=== PATIENT | male | born 1960 | race Caucasian/White ===

== ENCOUNTER 2018-02-04 17:33 | Emergency (ER) | payer OTHER ==
[~2018-02-04] VITALS: Ht 177.8 cm; Wt 97.5 kg
[~2018-02-04 17:33] MED LIST: AUGMENTIN 875 M1 TAB PO; FLEXERIL10 MG PO; MEDROL DOSEPAK1 PAC PO; OXY IR5 MG PO; PERCOCET 325 MG1 TA2 PO
[2018-02-04 17:39] VITALS: BP 151/100
--- NOTE | 2018-02-04 18:25 | RADIOLOGY REPORT ---
EXAMINATION: XR FINGER, RIGHT CLINICAL INFORMATION: Right thumb laceration on log splitter. COMPARISON: None TECHNIQUE: 3 views of the right thumb. FINDINGS: The thumb is covered by a bandage. No radiopaque foreign bodies are seen. Soft tissues are suboptimally evaluated due to the bandage. There is soft tissue irregularity/laceration predominantly at the anterior aspect of the distal thumb. A 0.3 cm avulsion fracture fragment from the dorsal base of the distal phalanx of the thumb is displaced proximally by 0.2 cm. The thumb interphalangeal joint mildly distracted. Mild dorsal subluxation of the distal phalanx. Small, displaced avulsion fracture fragment projects volar to the injured interphalangeal joint. 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 Osteoarthritis also observed at multiple IP joints of the 2nd - 5th digits. IMPRESSION: Small avulsion fractures at the anterior and posterior aspect of the thumb interphalangeal joint. The interphalangeal joint is mildly distracted and the distal phalanx exhibits mild dorsal subluxation. Soft tissues are suboptimally evaluated due to the overlying bandage. No radiopaque foreign bodies.
--- NOTE | 2018-02-04 18:30 | ED HAND/WRIST INJURY COMPLAINT ---
History of Present Illness General Chief Complaint: Laceration Procedure Stated Complaint: LAC TO RT THUMB Source: patient Exam Limitations: no limitations Vital Signs & Intake/Output Vital Signs & Intake/Output Vital Signs Date Time Temp Pulse Resp B/P B/P Pulse O2 O2 Flow FiO2 Mean Ox Delivery Rate 02/04 1739 98.7 101 18 151/100 98 Room Air Allergies Coded Allergies: NO KNOWN ALLERGIES (04/22/12) Reconcile Medications AMOXICILLIN/POTASSIUM CLAV (Augmentin 875-125 Tablet) 875 MG/125 MG TAB 1 TAB PO BID OPEN FX Cephalexin (Keflex) 500 MG CAPSULE 1 CAP PO TID CELLULITIS Oxycodone HCl/Acetaminophen (Percocet 5-325 MG Tablet) 5 MG-325 MG TABLET 1 TAB PO 4 TIMES/DAY PRN PAIN OXYCODONE HCL/ACETAMINOPHEN (Percocet 5-325 MG Tablet) 325 MG/5 MG TAB 1-2 TAB PO Q4-6 PRN PRN PAIN Triage Note: 57 YO MALE 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 TETNUS UTD. FINGER WRAPPED IN WAITING ROOM. NO ACTIVE BLEEDING AT THIS TIME. PT TO XRAY AND THEN TO ROOM Triage Nurses Notes Reviewed? yes Occurred: just prior to arrival Duration: hour(s): (1), constant, continues in ED Timing: single episode today Injury Environment: work Severity: mild, moderate Severity Numbers: 8 Pain/Injury Location: Right: 1st finger. Context: laceration Method of Injury: laceration No Modifying Factors: none HPI: 57-year-old male with no past medical history of present evaluation of a laceration to his right thumb. Patient was at work cutting logs using a wood splitter. He states that his thumb got caught the sharp edge of the wood splitter causing a laceration. Patient denies any other injuries up-to-date on tetanus. He reports a laceration located on the middle of the thumb mostly on the palmar aspect. He is able to move the thumb but it is painful. He denies any numbness or tingling no other injuries. Past History Travel History Traveled to [place] past 21 day No Medical History Any Pertinent Medical History? see below for history Neurological: NONE EENT: NONE Cardiovascular: NONE Respiratory: NONE Gastrointestinal: NONE Hepatic: NONE Renal: NONE Musculoskeletal: NONE Psychiatric: NONE Endocrine: NONE Blood Disorders: NONE Cancer(s): NONE PLANT OPERATIONS WORKER/Reproductive: NONE Tetanus Vaccine: 09/26/15 Surgical History Surgical History: non-contributory Psychosocial History What is your primary language Ghanaian Tobacco Use: Never used Family History Hx Contributory? No Review of Systems Review of Systems Constitutional: Reports: no symptoms. EENTM: Reports: no symptoms. Respiratory: Reports: no symptoms. Cardiovascular: Reports: no symptoms. GI: Reports: no symptoms. Genitourinary: Reports: no symptoms. Musculoskeletal: Reports: no symptoms. Skin: Reports: see HPI (laceration). Neurological/Psychological: Reports: no symptoms. Hematologic/Endocrine: Reports: no symptoms. Immunologic/Allergic: Reports: no symptoms. All Other Systems: Reviewed and Negative Physical Exam Physical Exam General Appearance: well developed/nourished, no apparent distress, alert, awake Head: atraumatic, normal appearance Eyes: Bilateral: normal appearance, EOMI. Ears, Nose, Throat: hearing grossly normal Neck: normal inspection, supple, full range of motion Cardiovascular/Respiratory: no respiratory distress Back: normal inspection, normal range of motion Elbow Left: normal range of motion, normal inspection Elbow Right: normal range of motion, normal inspection Forearm Left: normal range of motion, normal inspection Forearm Right: normal range of motion, normal inspection Wrist Left: normal range of motion, normal inspection Wrist Right: normal range of motion, normal inspection Hand Left: normal inspection, normal range of motion Hand Right: lacerations, evidence of injury, tender, 1st finger, there is a 1 evening that 2.5 cm horizontal linear laceration extending from the palmar aspect of the thumb to the lateral aspect of the thumb. Active bleeding is present. Subcutaneous tissue is visible. No obvious foreign body. Range of motion of the thumb is reduced due to pain but tendon function appears intact. There is soft tissue swelling. No evidence of nail damage. Cap refill less than 2 seconds sensory supply intact. Neurologic/Tendon: normal sensation, normal motor functions, normal tendon functions, responds to pain, no evidence tendon injury, no pulse deficit Skin: intact, normal color, warm/dry Progress Differential Diagnosis: laceration, tendon injury, fracture, sprain, dislocation Plan of Care: Current Medications Sig/Rolando Start time Last Medication Dose Stop Time Status Admin Lidocaine 20 ML ONCE ONE 02/04 1830 UNVr (Lidocaine 1%) 02/04 1831 Patient seen and evaluated. He is here with a thumb laceration. He is up-to- date on tetanus. On exam he has a large laceration located on the thumb. He does appear to have tendon function and neurovascular function intact. X-rays do show several avulsion fractures. The laceration was cleaned with copious amounts of sterile water. He denied applied. 1% lidocaine was used to apply a digital block. 11 4-0 nylon simple interrupted sutures were used to approximate the wound. Patient tolerated well. A splint and sterile dressing were applied. Discussed wound care procedures in detail. Patient will be covered with cephalexin for wound prophylaxis and treatment of possible open fracture. He'll be referred to hand surgery. Discussed with patient about the importance of good follow-up and wound care. Advised him if he cannot get in with the plastic surgeon on Wednesday to come into the ER for a recheck. Discussed return precautions in detail patient agrees the plan Diagnostic Imaging: Viewed by Me: Radiology Read. Discussed w/RAD: Radiology Read. Radiology Impression: PATIENT: NABIL SINGH PRESENT AGE: 57 PATIENT ACCOUNT NO: [id number] : 61 LOCATION: [facility] ORDERING PHYSICIAN: Arnie GAMBOA SERVICE DATE: 02/04/18 EXAM TYPE : RAD - XRY-FINGERS, RIGHT EXAMINATION: XR FINGER, RIGHT CLINICAL INFORMATION: Right thumb laceration on log splitter. COMPARISON: None TECHNIQUE: 3 views of the right thumb. FINDINGS: The thumb is covered by a bandage. No radiopaque foreign bodies are seen. Soft tissues are suboptimally evaluated due to the bandage. There is soft tissue irregularity/laceration predominantly at the anterior aspect of the distal thumb. A 0.3 cm avulsion fracture fragment from the dorsal base of the distal phalanx of the thumb is displaced proximally by 0.2 cm. The thumb interphalangeal joint mildly distracted. Mild dorsal subluxation of the distal phalanx. Small, displaced avulsion fracture fragment projects volar to the injured interphalangeal joint. 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 Osteoarthritis also observed at multiple IP joints of the 2nd - 5th digits. IMPRESSION: Small avulsion fractures at the anterior and posterior aspect of the thumb interphalangeal joint. The interphalangeal joint is mildly distracted and the distal phalanx exhibits mild dorsal subluxation. Soft tissues are suboptimally evaluated due to the overlying bandage. No radiopaque foreign bodies. DICTATED BY: Juan Keenan MD DATE/TIME DICTATED:02/04/181816 [employer] OPERATOR HELPER: JOSE L DATE/TIME TRANSCRIBED:02/04/181816 CONFIDENTIAL, DO NOT COPY WITHOUT APPROPRIATE AUTHORIZATION. <Electronically signed in Other Vendor System> Departure Departure Disposition: HOME OR SELF CARE Condition: Stable Clinical Impression Primary Impression: Thumb laceration Qualifiers: Encounter type: initial encounter Damage to nail status: without damage Foreign body presence: without foreign body Laterality: right Qualified Code: S61.011A - Laceration without foreign body of right thumb without damage to nail, initial encounter Referrals: Patient Has No Primary Care Dr (PCP/Family) Ramírez HALL,Hitesh Snow Additional Instructions: Keep the area clean and dry. Change dressing every 1-2 days. Wear splint at all times. Take antibiotics as directed for the full course. Use Tylenol and ibuprofen for pain Percocet for severe pain only. You need to have a wound check in 2 or 3 days. Make a follow-up with the plastic surgeon Dr. De La Paz for Wednesday or Wednesday. If you're unable to get in with him return to the emergency department in 2 or 3 days for a wound check. Return sooner with any concerns. Departure Forms: Customer Survey General Discharge Information Prescriptions: Current Visit Scripts Cephalexin (Keflex) 1 CAP PO TID #30 CAP Oxycodone HCl/Acetaminophen (Percocet 5-325 MG Tablet) 1 TAB PO 4 TIMES/DAY PRN PAIN #10 TAB
[2018-02-04] MEDS ORDERED: KEFLEX500 M1 PO (19:21)
[2018-02-04] MEDS ORDERED: PERCOCET 5-3251 EACH PO (19:21)
== END 2018-02-04 19:32 ==
LOC: ERH 17:33
DX: S61.011A Laceration without foreign body of right thumb without damage to nail, initial encounter (principal); W45.8XXA Other foreign body or object entering through skin, initial encounter; Y93.89 Activity, other specified
CPT/HCPCS: 73140-RT; J2001